=== PATIENT | male | born 2000 | race Caucasian/White ===

== ENCOUNTER 2020-09-06 14:02 | Emergency (ER) | payer OTHER ==
[~2020-09-06] VITALS: Ht 182.9 cm; Wt 79.4 kg
[2020-09-06] MEDS ORDERED: CEPH500 PO (16:21)
[2020-09-06] MEDS ORDERED: IBUP600 PO (16:21)
== END 2020-09-06 16:27 | disposition home or self-care (01) ==
LOC: ER 14:02
DX: S62.632B Displaced fracture of distal phalanx of right middle finger, initial encounter for open fracture (principal); F17.200 Nicotine dependence, unspecified, uncomplicated; Z88.0 Allergy status to penicillin; W27.8XXA Contact with other nonpowered hand tool, initial encounter
CPT/HCPCS: 11740; 12001; 73140; 99283-25; A9270

== ENCOUNTER 2020-09-13 09:23 | Emergency (ER) | payer OTHER ==
[~2020-09-13] VITALS: Ht 182.9 cm; Wt 72.6 kg
[~2020-09-13 09:23] MED LIST: CEPH500 PO; IBUP600 PO
== END 2020-09-13 11:02 | disposition home or self-care (01) ==
LOC: ER 09:23
DX: S62.633D Displaced fracture of distal phalanx of left middle finger, subsequent encounter for fracture with routine healing (principal); S61.213D Laceration without foreign body of left middle finger without damage to nail, subsequent encounter; W27.8XXD Contact with other nonpowered hand tool, subsequent encounter